=== PATIENT | male | born 1960 | race Caucasian/White ===

== ENCOUNTER 2022-03-13 07:04 | Day surgery (SDC) | payer OTHER ==
[2022-03-12 14:42] LABS: BASOPHILS % (AUTO) 0.6 % (0-1); EOSINOPHILS # (AUTO) 0.2 X10'3 (0-0.9); EOSINOPHILS % (AUTO) 2.6 % (0-6); HEMATOCRIT 47.2 % (42.0-52.0); HEMOGLOBIN 16.1 g/dl (14.0-17.9); LYMPHOCYTES % (AUTO) 24.4 % (21-51); MEAN CORPUSCULAR HEMOGLOBIN 31.9 PG (27.0-31.0); MEAN CORPUSCULAR HGB CONC 34.1 g/dL (33.0-36.5); MEAN CORPUSCULAR VOLUME 93.4 FL (78-98); MEAN PLATELET VOLUME 8.3 FL (7.4-10.4); MONOCYTES # (AUTO) 0.7 X10'3 (0-0.9); MONOCYTES % (AUTO) 8.5 % (2-12); NEUTROPHILS # (AUTO) 5.2 X10'3 (1.8-7.7); NEUTROPHILS % (AUTO) 63.9 % (42-75); PLATELET COUNT 222 X10'3 (140-440); RED BLOOD COUNT 5.06 X10'6 (4.70-6.10); RED CELL DISTRIBUTION WIDTH 13.6 % (11.5-14.5); WHITE BLOOD COUNT 8.1 X10'3 (4.5-11.0)
[2022-03-12 14:50] LABS: ANION GAP 8 (8-16); BLOOD UREA NITROGEN 19 MG/DL (7-18); BUN/CREATININE RATIO 14.8 (5.4-32.0); CALCIUM 8.8 MG/DL (8.5-10.1); CHLORIDE 103 MMOL/L (99-107); CREATININE 1.28 MG/DL (0.60-1.10); GLUCOSE 109 MG/DL (70-104); POTASSIUM 4.1 MMOL/L (3.5-5.1); SODIUM 140 MMOL/L (135-145); TOTAL CARBON DIOXIDE 28.9 MMOL/L (24-32); eGFR 57 ML/MIN
[2022-03-12 14:51] LABS: ALBUMIN 3.7 G/DL (3.4-5.0)
[~2022-03-13] VITALS: Ht 180.3 cm; Wt 97.9 kg
[~2022-03-13 07:04] MED LIST: ONDA4TAB6 PO
[2022-03-13] MEDS ORDERED: morphine 10mg/ml inj. IV ONE (07:20)
[2022-03-13] MEDS ORDERED: MIDAZolam 1mg/ml 10ml vial IV ONE (07:20)
[2022-03-13] MEDS ORDERED: amiodarone 150mg/dext, iso-os 100 ML IV ONE (07:20)
[2022-03-13] MEDS ORDERED: diphenhydrAMINE 25mg capsule PO ONE (07:20)
[2022-03-13] MEDS ORDERED: LORazepam 0.5 MG tablet PO ONE (07:20)
[2022-03-13] MEDS ORDERED: atropine 0.1mg/ml 10ml syringe IV ONE (07:20)
[2022-03-13] MEDS ORDERED: ATOR-2 PO (08:52)
[2022-03-13] MEDS ORDERED: APIX5TAB3 PO (08:52)
[2022-03-13] MEDS ORDERED: FLEC100T35 (08:52)
[2022-03-13] MEDS ORDERED: ALLO100T PO (08:52)
[2022-03-13] MEDS ORDERED: LEVO75TA PO (08:52)
[2022-03-13] MEDS ORDERED: CARV6.253 PO (08:52)
--- NOTE | 2022-03-13 09:25 | NUR ---
Dr. Sands in to see pt. pt EKG reveals NSR. DR. Sands discussed medications with the pt and pts and daughter. pt to resume all home meds. increase Flecinide to 150mg BID. Dr. Sands talked to the pt about medications and to set up sleep study with PMD. pt discharged in stable condition. no procedure done.
== END 2022-03-13 09:32 | disposition home or self-care (01) ==
LOC: SSTAY O 07:04
PROVIDERS: ATTEND Internal Medicine Cardiovascular Disease
DX: I48.91 Unspecified atrial fibrillation (principal); M10.9 Gout, unspecified; E03.9 Hypothyroidism, unspecified; Z53.8 Procedure and treatment not carried out for other reasons; E78.5 Hyperlipidemia, unspecified; Z79.899 Other long term (current) drug therapy; Z98.890 Other specified postprocedural states; Z82.49 Family history of ischemic heart disease and other diseases of the circulatory system
CPT/HCPCS: 36415; 80048; 85025; 85610; 93005; A4620; J7030

== ENCOUNTER 2024-03-25 08:14 | Day surgery (SDC) | payer OTHER ==
[~2024-03-25] VITALS: Ht 180.3 cm; Wt 94.3 kg
[~2024-03-25 08:14] MED LIST changes: +ALLO100T PO; +APIX5TAB3 PO; +ATOR-2 PO; +CARV6.253 PO; +FLEC100T35; +LEVO75TA PO; -ONDA4TAB6 PO
[2024-03-25] MEDS ORDERED: amiodarone 150mg/dext, iso-os 100 ML IV ONE (08:50)
[2024-03-25] MEDS ORDERED: normal saline 1000ml 1,000 ML IV SCH (08:50)
[2024-03-25] MEDS ORDERED: atropine 0.1mg/ml 10ml syringe IV ONE (08:50)
[2024-03-25] MEDS ORDERED: LORazepam 0.5 MG tablet PO ONE (08:50)
[2024-03-25] MEDS ORDERED: morphine 10mg/ml inj. IV ONE (08:50)
[2024-03-25] MEDS ORDERED: diphenhydrAMINE 25mg capsule PO ONE (08:50)
[2024-03-25] MEDS ORDERED: MIDAZolam 1mg/ml 10ml vial IV ONE (08:50)
== END 2024-03-25 09:40 | disposition home or self-care (01) ==
LOC: SSTAY O 08:14
PROVIDERS: ATTEND Internal Medicine Cardiovascular Disease
DX: I48.19 Other persistent atrial fibrillation (principal); Z53.8 Procedure and treatment not carried out for other reasons; E78.5 Hyperlipidemia, unspecified; E03.9 Hypothyroidism, unspecified; M10.9 Gout, unspecified
CPT/HCPCS: 93005; J7030

== ENCOUNTER 2024-07-06 07:34 | Day surgery (SDC) | payer OTHER ==
[~2024-07-06] VITALS: Ht 180.3 cm; Wt 89.9 kg
[2024-07-06 07:30] VITALS: BP 95/65; PULSE 58; RESP 14; TEMP 97.7; O2SAT 96
[~2024-07-06 07:34] MED LIST changes: -FLEC100T35; +FLEC100T35 PO
[2024-07-06] MEDS ORDERED: morphine 10mg/ml inj. IV ONE (08:05)
[2024-07-06] MEDS ORDERED: diphenhydrAMINE 25mg capsule PO ONE (08:05)
[2024-07-06] MEDS ORDERED: amiodarone 150mg/dext, iso-os 100 ML IV ONE (08:05)
[2024-07-06] MEDS ORDERED: LORazepam 0.5 MG tablet PO ONE (08:05)
[2024-07-06] MEDS ORDERED: atropine 0.1mg/ml 10ml syringe IV ONE (08:05)
[2024-07-06] MEDS ORDERED: normal saline 1000ml 1,000 ML IV SCH (08:05)
[2024-07-06] MEDS ORDERED: MIDAZolam 1mg/ml 10ml vial IV ONE (08:05)
== END 2024-07-06 09:30 | disposition home or self-care (01) ==
LOC: SSTAY O 07:34
PROVIDERS: ATTEND Internal Medicine Cardiovascular Disease
DX: I48.0 Paroxysmal atrial fibrillation (principal); Z53.8 Procedure and treatment not carried out for other reasons; E78.5 Hyperlipidemia, unspecified; M10.9 Gout, unspecified; E03.9 Hypothyroidism, unspecified; Z98.890 Other specified postprocedural states; Z79.899 Other long term (current) drug therapy; Z82.49 Family history of ischemic heart disease and other diseases of the circulatory system
CPT/HCPCS: 93005; J7030